=== PATIENT | female | born 1995 | race Caucasian/White ===

== ENCOUNTER 2018-08-27 18:17 | Emergency (ER) | payer MEDICAID, OTHER ==
[~2018-08-27] VITALS: Ht 149.9 cm; Wt 66.3 kg
[~2018-08-27 18:17] MED LIST: FERR325C PO; PRENAT PO
[2018-08-27 18:56] VITALS: BP 146/84; PULSE 74; RESP 19; Ht 149.9 cm; Wt 66.3 kg
[2018-08-27] MEDS ORDERED: CARB-155 BOTH EARS (22:38)
--- NOTE | 2018-08-27 22:41 | ERD ---
ER Documentation Chief Complaint Chief Complaint C/O GRISELDA EAR ACHE X3 DAYS HPI This is a 23-year-old female who presents with bilateral ear pain and decreased hearing worse on the right side. She also touched her right ear she states and noticed a drop of blood on her finger. No ringing in her ears. No fevers. No recent illness. ROS All systems reviewed and are negative except as per history of present illness. Medications Home Meds Active Scripts Carbamide Peroxide* (Debrox*) 6.5% -15 Ml Drops, 10 DROP BOTH EARS BID, #1 BOX Prov:ROLDAN MCQUEEN PA-C 08/27/18 Reported Medications Ferrous Sulfate (Iron) 325 Mg Capsule.er, 325 MG PO BID, CAP 04/08/16 Multivit/Min/Fol Ac/Iron/Pren* ( S*) 1 Tab Tab, 1 TAB PO DAILY, TAB 04/08/16 Allergies Allergies: Coded Allergies: No Known Allergy (Unverified , 04/08/16) PMhx/Soc Medical and Surgical Hx: pt denies Medical Hx History of Surgery: Yes (C SEC X'S 2) Anesthesia Reaction: No Hx Alcohol Use: No Hx Substance Use: No Hx Tobacco Use: No Smoking Status: Never smoker FmHx Family History: No diabetes Physical Exam Vitals Vital Signs Date Temp Pulse Resp B/P (MAP) Pulse Ox O2 O2 Flow FiO2 Time Delivery Rate 08/27/18 99.0 74 19 146/84 99 18:56 (104) Physical Exam Const: No acute distress Head: Atraumatic Eyes: Normal Conjunctiva ENT: Cerumen impaction bilaterally, right ears has small abrasion to the ear canal that is not bleeding Neck: Full range of motion. No meningismus. Resp: Clear to auscultation bilaterally Cardio: Regular rate and rhythm, no murmurs Procedures/MDM Patient is here for cerumen impaction. No evidence of infection. Ear lavage was performed. Patient was discharged with Debrox. Patient counseled regarding my diagnostic impression and care plan. Prior to discharge all questions answered. Pt agrees with treatment plan and understands strict return precautions. Pt is instructed to follow up with primary care provider within 24-48 hours. Precautionary instructions provided including instructions to return to the ER if not improving or for any worsening or changing symptoms or concerns. Departure Diagnosis: Primary Impression: Cerumen impaction Condition: Stable Patient Instructions: Cerumen Impaction, Home Care Additional Instructions: Llame al doctor MAANA y mikhail josé MONICA PARA DENTRO DE 1-2 MARTINEZ.Dgale a la secretaria que nosotros le instruimos hacer esta monica.Avise o llame si lujan condicin se empeora antes de la monica. Regresa aqui si peor o no mejor. ROLDAN MCQUEEN PA-C Aug 27, 2018 22:41
== END 2018-08-27 22:50 | disposition home or self-care (01) ==
LOC: FTE 18:17
DX: H61.23 Impacted cerumen, bilateral (principal)